=== PATIENT | male | born 1945 | race Caucasian/White ===

== ENCOUNTER 2016-11-15 20:24 | Inpatient (IN) ==
[2016-11-15] MEDS ORDERED: 0.9 % Sodium Chloride 1,000 ML IVC ONE ×2 (20:40→22:49)
--- NOTE | 2016-11-15 20:41 | Emergency Department Note ---
Disposition Clinical Impression: Gastroenteritis, Dehydration Acute kidney failure Qualifiers: Acute renal failure type: unspecified Qualified Code(s): N17.9 - Acute kidney failure, unspecified Disposition: Admitted As Inpatient Condition: Good Referrals: Unassigned,Provider [Non-Partnered Physician] - Forms: ED Satisfaction Letter Nausea/Vomiting/Diarrhea HPI - General Chief complaint: ED Nausea/Vomiting/Diarrhea Stated complaint: N/V/DIZZY Time Seen by Provider: 11/15/16 20:25 Source: patient, EMS Mode of arrival: ambulatory Limitations: no limitations Nursing Notes Reviewed: Yes Vital Signs Reviewed: Yes - History of Present Illness HPI Narrative: She is a 70-year-old male with a last 3-4 days had nausea vomiting and diarrhea. He states the nausea is improved he had 4-5 loose stools today denies any recent antibiotic use denies any travel or hospitalizations or longterm visits. Pt Subjective Complaint: nausea, vomiting Onset (ago): day(s) (4) Description of emesis: watery Description of Diarrhea: water Number of episodes: 4 Associated Abdominal Pain: No Improves with: nothing Worsens with: nonthing - Related Data Allergies Allergy/AdvReac Type Severity Reaction Status Date / Time clarithromycin Allergy Swelling Verified 10/24/15 15:08 of Lip/Tongue/Throat All systems ED: reviewed and negative except as stated. Constitutional: Reports: weakness. Denies: fever, chills Respiratory: Reports: cough (2 months) Past Medical History - Past Medical History Source: patient, old records reviewed, nursing notes reviewed Medical history: Reports: COPD, diabetes, hyperlipidemia, hypertension - Social History Smoking Status: Never smoker Alcohol use: Reports: none Drug use: Reports: none Physical Exam - General Limitations: no limitations General appearance: alert, in no apparent distress - Head Head exam: atraumatic, normocephalic, normal inspection - Eye Eye exam: Present: normal appearance, PERRL, EOMI - Expanded Eye Exam Pupils: Left: reactive - ENT ENT exam: normal exam, normal oropharynx, mucous membranes moist - Expanded ENT Exam External ear exam: Present: normal external inspection Mouth exam: Present: normal external inspection Teeth exam: Present: normal inspection Throat exam: Present: normal inspection - Neck Neck exam: Present: normal inspection, full ROM, trachea midline - Chest Chest inspection: Present: normal inspection, symmetric chest wall rise - Respiratory Respiratory exam: Present: other (Some diffuse coarse rhonchi with cough) - Cardiovascular Cardiovascular exam: Present: tachycardia - Abdominal Exam Abdominal exam: Present: soft, Non-Tender. Absent: tenderness, distention, guarding, rebound, rigidity - Extremities Exam Extremities exam: Present: normal inspection, full ROM. Absent: tenderness, pedal edema - Expanded Upper Extremity Exam Shoulder exam: Present: normal inspection, full ROM Arm exam: Present: normal inspection, full ROM Elbow exam: Present: normal inspection, full ROM Forearm/Wrist exam: Present: normal inspection, full ROM Hand exam: Present: normal inspection, full ROM Vascular exam: Normal: capillary refill, radial pulse - Expanded Lower Extremity Exam Hip/Pelvis exam: Present: normal inspection, full ROM Upper leg exam: Present: normal inspection, full ROM Knee exam: Present: normal inspection, full ROM Lower leg exam: Present: normal inspection, full ROM Ankle exam: Present: normal inspection, full ROM Foot/toe exam: Present: normal inspection, full ROM Neurovascular/Tendon exam: Absent: motor deficit, sensory deficit, tendon deficit - Back Exam Back exam: Present: normal inspection, full ROM. Absent: tenderness - Neurological Exam Neurological exam: Present: alert, oriented X3 - Expanded Neurological Exam Patient oriented to: Present: person, place, time Coma Scale Eye Opening: Spontaneous Coma Scale Motor Response: Obeys Commands Coma Scale Verbal Response: Oriented Coma Scale Total: 15 - Psychiatric Psychiatric exam: Present: normal affect, normal mood - Skin Skin exam: Present: warm, dry, intact, normal color Course Vital Signs Temperature 99.5 F 11/15/16 20:26 Pulse Rate 134 11/15/16 20:26 Respiratory Rate 24 11/15/16 20:26 Blood Pressure 99/65 11/15/16 20:26 O2 Sat by Pulse Oximetry 95 11/15/16 20:26 Temperature 99.5 F 11/15/16 20:26 Pulse Rate 134 11/15/16 20:26 Respiratory Rate 26 11/15/16 21:13 Blood Pressure 99/65 11/15/16 20:26 O2 Sat by Pulse Oximetry 94 L 11/15/16 21:13 Nausea/Vomiting/Diarrhea - Differential Diagnosis Likely: traveler's diarrhea, gastroenteritis, clostridium difficile infection, drug-induced nausea and vomitting, dehydration - Medical Records Medical records reviewed: Yes I reviewed the patient's medical records. - Lab Data Lab results reviewed: Yes I reviewed the patient's lab results. Result diagrams: 11/15/16 21:32 11/15/16 21:32 Lab Results 11/15/16 11/15/16 Range/Units 21:32 21:32 WBC 19.9 H (4.3-11.1) K/mcL RBC 5.52 H (4.19-5.50) M/mcL Hgb 12.6 L (12.9-16.9) g/dL Hct 40.9 (37.5-50.1) % MCV 74.1 L (83.0-100.0) fL MCH 22.8 L (28.0-33.3) pg MCHC 30.8 L (31.6-35.5) g/dL RDW 17.9 H (11.5-14.5) % Plt Count 356 (140-400) K/mcL MPV 10.3 (9.4-12.4) fL Immature Gran % 0.7 (0-4) % Seg Neutrophils % 85.0 % Lymphocytes % 4.6 % Monocytes % 9.5 % Eosinophils % 0.0 % Basophils % 0.2 % Neutrophils # 16.9 H (1.6-8.9) K/mcL Lymphocytes # 0.9 (0.6-4.6) K/mcL Monocytes # 1.9 H (0.0-1.3) K/mcL Eosinophils # 0.0 (0.0-0.6) K/mcL Basophils # 0.0 (0.0-0.2) K/mcL Sodium 131 L (136-145) mEq/L Potassium 3.9 (3.5-4.5) mEq/L Chloride 100 (98-109) mEq/L Carbon Dioxide 15 L (19-29) mEq/L BUN 67 H (8-26) mg/dL Creatinine 2.76 H (0.72-1.25) mg/dL Est GFR ( Amer) 28 L (> 60) Est GFR (Non-Af Amer) 23 L (> 60) BUN/Creatinine Ratio 24 (6-26) Glucose 298 H (70-99) mg/dL Calculated Osmolality 302 H (280-300) Calcium 8.2 L (8.6-10.8) mg/dL Total Bilirubin 0.4 (0.2-1.2) mg/dL AST 18 (5-34) Units/L ALT 19 (0-55) Units/L Alkaline Phosphatase 30 L (38-126) Units/L Serum Total Protein 7.3 (6.0-8.3) g/dL Albumin 3.3 L (3.5-5.0) g/dL Globulin 4.0 H (2.4-3.5) g/dL Albumin/Globulin Ratio 0.8 L (1.1-2.2) Lipase 12 (8-78) Units/L
[2016-11-15] MEDS ORDERED: Ipratropium/Albuterol Neb 3 ML IH ONE ×2 (20:47→20:49)
[2016-11-15 22:12] LABS: Basophils % 0.2 %; Hematocrit 40.9 % (37.5-50.1); Hemoglobin 12.6 g/dL (12.9-16.9); Immature Granulocytes % 0.7 % (0-4); Lymphocytes # 0.9 K/mcL (0.6-4.6); Lymphocytes % 4.6 %; Mean Corpuscular HGB Conc 30.8 g/dL (31.6-35.5); Mean Corpuscular Hemoglobin 22.8 pg (28.0-33.3); Mean Corpuscular Volume 74.1 fL (83.0-100.0); Mean Platelet Volume 10.3 fL (9.4-12.4); Monocytes # 1.9 K/mcL (0.0-1.3); Monocytes % 9.5 %; Neutrophils # 16.9 K/mcL (1.6-8.9); Platelet Count 356 K/mcL (140-400); Red Blood Count 5.52 M/mcL (4.19-5.50); Red Cell Distribution Width 17.9 % (11.5-14.5)
[2016-11-15 22:29] LABS: Albumin 3.3 g/dL (3.5-5.0); Albumin/Globulin Ratio 0.8 (1.1-2.2); Bilirubin,Total 0.4 mg/dL (0.2-1.2); Calcium 8.2 mg/dL (8.6-10.8); Potassium 3.9 mEq/L (3.5-4.5); Total Protein 7.3 g/dL (6.0-8.3)
--- NOTE | 2016-11-16 00:28 | Internal Med History&Physical ---
<Grazyna Hager - Last Filed: 11/16/16 21:34> Date of Encounter: 11/16/16 Time of Encounter: 01:03 Assessment and Plan (1) Gastroenteritis Current visit: Yes Status: Acute patient with diarhea, loss of appetite, and some nausea - no vomiting today ( although he only drank some chicken broth) clear liquid diet IVF (2) COPD exacerbation Current visit: Yes Status: Acute with hypoxemia patient does not use supplemental O2 at home at baseline is only dyspneic when hunting [place]and [place] VBG supplemental O2 via nasal cannula to maintain O2 sat at or above 94% duonebs q4 while awake (3) Acute kidney failure Current visit: Yes Status: Acute due to dehydration: N/V/D IVF AM labs to recheck consider renal US and nephrology consult if not improved with fluids (4) Dehydration Current visit: Yes Status: Acute 2 L fluid bolus followed by maintenance IVF (5) Diabetes Current visit: Yes Status: Acute SQ insulin with low dose sliding scale accuchecks q6 (6) HTN (hypertension) Current visit: Yes Status: Acute continue home medications BP was low in the ER (99/65) Internal Medicine - H&P: HPI Chief complaint: nausea, vomiting, diarrhea Admitted From: Emergency Dept Plans for Post Hospital Care: Home History of present illness: Mr. Peters is a 70 year old male with a PMH of diabetes, HTN, HLD, and COPD who presents to the ER with a 3 day history of nausea, vomiting, and diarrhea. Today his nausea is improved and he has not vomited. He has only drank a small amount of chicken broth and has no appetite. He has had 3 episodes of watery diarrhea today. He has also noticed increased dyspnea for the previous 3 days along with weakness and fatigue. His grandson was sick with a stomach bug last week. Past Med Surg Social Fam HX - Past Medical History Medical history: asthma, COPD, diabetes, GERD, hyperlipidemia, hypertension - Past Surgical History Surgical History: cataract, LE vascular intervention ( LLE phlebectomy, vein ablation), orthopedic, other, other - Social History Smoking Status: Never smoker Alcohol use: none Drug use: none - Family History Mother Adopted: [place]: [place] Family Member Ethnicity: Non- Living Status: Age at : 89 Cause of : [place] Internal Medicine - H&P: Meds Amitriptyline [Elavil] 25 mg PO HS 11/16/16 [History] Budesonide/Formoterol 80/4.5 [Symbicort 80/4.5] 1 puff IH BID 11/16/16 [History ] Clotrimazole 1% CRM [Lotrimin 1%] 1 appl TP BID 11/16/16 [History] Gabapentin [Neurontin] 800 mg PO TID 11/16/16 [History] Guaifenesin [Mucinex] 400 mg PO BID 11/16/16 [History] Insulin Glargine,Hum.rec.anlog [Lantus Solostar] 80 unit SQ BID 11/16/16 [ History] Lisinopril [Zestril] 10 mg PO DAILY 11/16/16 [History] Metformin [Glucophage] 1,000 mg PO BID 11/16/16 [History] Montelukast [Singulair] 10 mg PO HS 11/16/16 [History] Pantoprazole Sodium 40 mg PO DAILY 11/16/16 [History] Saxagliptin HCl [Onglyza] 5 mg PO DAILY 11/16/16 [History] Simvastatin [Zocor] 40 mg PO DAILY 11/16/16 [History] Allergies clarithromycin Allergy (Verified 10/24/15 15:08) Swelling of Lip/Tongue/Throat All Systems PM: A 10-system review of systems was performed and is negative for pertinent findings except as documented above in the HPI. - Constitutional Constitutional: fatigue, weakness, no chills, no fever(s), no night sweats - EENT Eyes: no blurry vision, no change in vision, no discharge, no pain, no photophobia Ears: no ear discharge, no ear pain, no tinnitus Nose, mouth and throat: no dysphagia, no nasal discharge, no neck pain, no sore throat - Cardiovascular Cardiovascular ROS IM: dyspnea, dyspnea on exertion, lightheadedness, no chest pain, no diaphoresis, no palpitations, no syncope - Respiratory Respiratory: cough, dyspnea, dyspnea on exertion, no wheezing, no excessive phlegm production - Gastrointestinal Gastrointestinal: diarrhea, nausea, vomiting, no abdominal pain, no hematemesis , no hematochezia, no melena - Musculoskeletal Musculoskeletal ROS IM: no myalgias, no numbness, no tingling - Integumentary Integumentary IM: no rash, no unusual bruising - Neurological Neurological ROS: no confusion, no convulsions, no focal weakness, no numbness, no tingling, no tremor(s) - Hematologic/Lymphatic Hematologic/Lymphatic: no easy bruising - Constitutional Vitals: Temp Pulse Resp BP Pulse Ox 99.5 F 134 20 110/55 94 L 11/15/16 20:26 11/15/16 20:26 11/15/16 23:57 11/15/16 23:57 11/15/16 21:13 General appearance: Present: cooperative, A&O X 3, no acute distress, obese, answers questions appropriately - Head Head exam: Present: atraumatic, normocephalic - Eye Eye exam: Present: PERRL, conjuntiva pink, sclera anicteric Pupils: Present: PERRL - Neck Neck exam general surgery: Present: supple, trachea midline. Absent: lymphadenopathy - Respiratory Respiratory exam: Present: tachypnea (coarse breath sounds throughout). Absent : accessory muscle use, rales, wheezes - Cardiovascular Cardiovascular exam: Present: +S1, +S2, tachycardia. Absent: diastolic murmur, gallop, rubs, systolic murmur - GI/Abdominal GI/Abdominal exam: Present: normal bowel sounds, soft, no peritoneal signs. Absent: distended, tenderness - Extremities Exam Extremities exam: Present: warm. Absent: calf tenderness, cyanotic, pedal edema - Neurological Exam Neurological exam: Present: CN II-XII intact, oriented X3, no focal deficits. Absent: pronater drift, facial droop, speech deficit - Skin Skin exam: Present: dry, intact Internal Med - H&P Results - Labs CBC & Chem 7: 11/16/16 03:05 11/16/16 03:05 <Gilberto Romano - Last Filed: 11/17/16 01:24> Date of Encounter: 11/17/16 Internal Medicine - H&P: HPI History of present illness: Mr. Peters is a 70 year old male All Systems PM: A 10-system review of systems was performed and is negative for pertinent findings except as documented above in the HPI. - Constitutional Vitals: Temp Pulse Resp BP Pulse Ox 97.9 F 108 14 94/52 93 L 11/16/16 23:33 11/16/16 23:33 11/16/16 23:33 11/16/16 23:33 11/16/16 23:33 Internal Med - H&P Results - Labs CBC & Chem 7: 11/16/16 03:05 11/16/16 03:05 Labs: Short CBC 11/16/16 Range/Units 03:05 WBC 18.6 H (4.3-11.1) K/mcL Hgb 11.9 L (12.9-16.9) g/dL Hct 38.9 (37.5-50.1) % Plt Count 354 (140-400) K/mcL Neutrophils # 15.9 H (1.6-8.9) K/mcL BMP 11/16/16 03:05 Sodium 130 L Potassium 3.5 Chloride 99 Carbon Dioxide 15 L BUN 75 H Creatinine 2.66 H Glucose 279 H Calcium 7.4 L - ABG Interpretation ABG results: 11/16/16 03:05 VBG pH 7.29 L VBG pCO2 37 L VBG pO2 82 H VBG HCO3 17.8 L - Attending Attestation I examined this patient and my medical decision-making was reviewed with the Resident Physician Dr Hager. I agree with the documented findings, disposition and treatment plan as described except to the extent set forth below. Patient admitted for severe dehydration causing acute kidney injury in the context of acute viral gastroenteritis. On exam he is in no acute distress. Heart is regular. Lungs are with bilateral expiratory wheezes. We will admit the patient to the hospital for IV fluid hydration. Monitor kidney function. Inhaled bronchodilators for COPD.
[2016-11-16] MEDS ORDERED: Naloxone 0.4 MG/ML INJ IVP PRN (00:55)
[2016-11-16] MEDS ORDERED: D5% in Water 1,000 ML IV PRN ×2 (01:01→16:15)
[2016-11-16] MEDS ORDERED: Dextrose Gel 15 GM PO PRN ×4 (01:01→16:15)
[2016-11-16] MEDS: Acetaminophen 325 MG TABLET PO PRN ×2 (01:36→08:05)
[2016-11-16] MEDS: Insulin DETEMIR 100 UNIT/ML X5UNITS SQ SCH ×2 (01:54→20:17)
[2016-11-16] MEDS: Insulin LISPRO 300 UNITS/3 ML VIAL SQ SCH ×9 (01:55→21:03)
[2016-11-16 02:12] LABS: Bilirubin,Urine Negative (Negative); Blood,Urine Negative (Negative); Clarity,Urine Cloudy (Clear); Color,Urine Yellow (Yellow); Glucose,Urine (UA) Normal (Normal); Ketones,Urine Negative (Negative); Leukocyte Esterase,Urine Negative (Negative); Nitrite,Urine Negative (Negative); Protein,Urine 100 mg/dL (Neg-Trace); Specific Gravity,Urine 1.021 (1.010-1.025); Urobilinogen,Urine Normal (Normal)
[2016-11-16 02:14] LABS: Bacteria,Urine None Seen per hpf (None-Few); Squamous Epithelial Cell,Urine Many per lpf (None-Few); WBC,Urine 0-3 per hpf (0-3)
[2016-11-16] MEDS ORDERED: 0.9 % Sodium Chloride 1,000 ML IVC SCH ×2 (03:00→16:17)
[2016-11-16 03:49] LABS: VBG HCO3 17.8 mEq/L (21-27); VBG PH 7.29 pH Units (7.32-7.42)
[2016-11-16 03:51] LABS: Basophils % 0.1 %; Hematocrit 38.9 % (37.5-50.1); Hemoglobin 11.9 g/dL (12.9-16.9); Immature Granulocytes % 0.4 % (0-4); Lymphocytes # 1.1 K/mcL (0.6-4.6); Lymphocytes % 6.1 %; Mean Corpuscular HGB Conc 30.6 g/dL (31.6-35.5); Mean Corpuscular Hemoglobin 22.1 pg (28.0-33.3); Mean Corpuscular Volume 72.3 fL (83.0-100.0); Monocytes # 1.5 K/mcL (0.0-1.3); Monocytes % 7.8 %; Neutrophils # 15.9 K/mcL (1.6-8.9); Platelet Count 354 K/mcL (140-400); Red Blood Count 5.38 M/mcL (4.19-5.50); Red Cell Distribution Width 16.8 % (11.5-14.5); Segmented Neutrophils % 85.6 %
[2016-11-16] MEDS: Ipratropium/Albuterol Neb 3 ML IH SCH ×5 (04:05→20:06)
[2016-11-16 04:06] LABS: Calcium 7.4 mg/dL (8.6-10.8); Potassium 3.5 mEq/L (3.5-4.5)
[2016-11-16] MEDS ORDERED: MethylPREDNISolone 40 MG/ML VIAL IVP SCH (08:00)
[2016-11-16] MEDS: 0.9 % Sodium Chloride 1,000 ML IVC SCH ×2 (08:04→14:52)
[2016-11-16] MEDS: Gabapentin 400 MG CAPSULE PO SCH ×3 (08:05→20:17)
[2016-11-16] MEDS: Budesonide/Formoterol 80/4.5 MDI IH SCH ×2 (08:27→20:06)
[2016-11-16] MEDS: *HR* HYDROcodone/Acet 7.5/325 mg TABLET PO PRN ×2 (09:49→17:49)
[2016-11-16] MEDS: Fluticasone Propionate Nasal 50 MCG/SPRAY BOTTLE NS SCH (09:51)
[2016-11-16 12:14] LABS: Adenovirus F 40/41 PCR Not detected (Not detect); Astrovirus PCR Not detected (Not detect); C.difficile Toxin A/B by PCR Not detected (Not detect); Campylobacter by PCR Not detected (Not detect); Cryptosporidium by PCR Not detected (Not detect); Cyclospora cayetanensis PCR Not detected (Not detect); E. coli O157 by PCR Not detected (Not detect); Entamoeba histolytica PCR Not detected (Not detect); Enteroaggregative E.coli(EAEC) Not detected (Not detect); Enteropathogenic E.coli(EPEC) Not detected (Not detect); Enterotoxigenic E.coli (ETEC) Not detected (Not detect); Giardia lamblia PCR Not detected (Not detect); Norovirus GI/GII PCR Not detected (Not detect); Plesiomonas shigelloides PCR Not detected (Not detect); Rotavirus A PCR ***DETECTED*** (Not detect); Salmonella PCR Not detected (Not detect); Sapovirus PCR Not detected (Not detect); Shig/EnteroinvasiveE coli EIEC Not detected (Not detect); Shigalike tox-prod E coli STEC Not detected (Not detect); Vibrio PCR Not detected (Not detect); Vibrio cholerae PCR Not detected (Not detect); Yersinia enterocolitica PCR Not detected (Not detect)
[2016-11-16] MEDS ORDERED: *HR* Dextrose 50 % in Water (Syg) 50 ML SYRINGE IVP PRN (16:15)
--- NOTE | 2016-11-16 16:20 | Event Note ---
Date of Encounter: 11/16/16 Time of Encounter: 15:50 70-year-old male with history of hypertension, diabetes, COPD, admitted with persistent nausea, vomiting and diarrhea for the last 2-3 days. Patient was noted to be dehydrated at admission. Patient seen and examined. Reports crampy abdominal pain in central abdomen. Improved nausea and emesis but persistent dark colored loose, watery, nonbloody diarrhea. Awake, alert and oriented 3. Chest-S1, S2 heard. Lungs-bilateral coarse breath sounds, intermittent basal wheezing. Abdomen-obese, soft, tenderness in left lower abdomen. Reviewed labs-notable for persistent leukocytosis (WBC 18.6), serum creatinine slightly improving (creatinine 2.6), metabolic acidosis (serum bicarbonate 15). Stool studies are positive for lactoferrin, rotavirus PCR. Acute viral gastroenteritis- Continue aggressive IV hydration and supportive care for gastroenteritis. Hand hygiene for rotavirus infection. When necessary antiemetics. Monitor electrolytes closely and replace as needed. Acute kidney injury on chronic kidney disease- review of previous serum creatinine shows possible chronic kidney disease. Serum creatinine about 2 years ago was noted to be around 1.5. Continue IV hydration and monitor creatinine closely. Avoid nephrotoxic agents. Metabolic acidosis due to diarrhea- treat underlying cause. When necessary loperamide for diarrhea. No indication for bicarbonate treatment at this point. Mild acute exacerbation of COPD- Taper down IV steroids as tolerated. Continue bronchodilators and supplemental oxygen as needed.
[2016-11-16] MEDS: MethylPREDNISolone 40 MG/ML VIAL IVP SCH (17:49)
[2016-11-17] MEDS: 0.9 % Sodium Chloride 1,000 ML IVC SCH ×2 (00:02→10:31)
[2016-11-17] MEDS: Ipratropium/Albuterol Neb 3 ML IH SCH ×6 (00:13→20:14)
[2016-11-17] MEDS: MethylPREDNISolone 40 MG/ML VIAL IVP SCH (04:41)
[2016-11-17] MEDS ORDERED: GI Cocktail 40 ML EACH PO ONE (04:48)
[2016-11-17] MEDS: Budesonide/Formoterol 80/4.5 MDI IH SCH ×2 (08:08→20:14)
[2016-11-17 08:16] LABS: Basophils % 0.1 %; Hematocrit 37.8 % (37.5-50.1); Hemoglobin 11.7 g/dL (12.9-16.9); Immature Granulocytes % 0.3 % (0-4); Lymphocytes # 0.9 K/mcL (0.6-4.6); Lymphocytes % 6.5 %; Mean Corpuscular Hemoglobin 22.5 pg (28.0-33.3); Mean Corpuscular Volume 72.8 fL (83.0-100.0); Mean Platelet Volume 9.9 fL (9.4-12.4); Monocytes # 0.7 K/mcL (0.0-1.3); Neutrophils # 12.6 K/mcL (1.6-8.9); Platelet Count 308 K/mcL (140-400); Red Blood Count 5.19 M/mcL (4.19-5.50); Segmented Neutrophils % 88.1 %
[2016-11-17 08:28] LABS: Magnesium 1.3 mg/dL (1.6-2.6); Potassium 3.9 mEq/L (3.5-4.5)
[2016-11-17] MEDS: Gabapentin 400 MG CAPSULE PO SCH ×3 (09:09→20:43)
[2016-11-17] MEDS: Fluticasone Propionate Nasal 50 MCG/SPRAY BOTTLE NS SCH (09:09)
[2016-11-17] MEDS: *HR* HYDROcodone/Acet 7.5/325 mg TABLET PO PRN ×3 (09:09→16:32)
[2016-11-17] MEDS: Insulin LISPRO 300 UNITS/3 ML VIAL SQ SCH ×7 (09:10→20:42)
[2016-11-17] MEDS ORDERED: Magnesium Sulfate 2 GM in D5% in Water 100 ML IVPB ONE (12:10)
--- NOTE | 2016-11-17 13:26 | Internal Med Progress Note ---
Date of Encounter: 11/17/16 Time of Encounter: 12:00 - Subjective Interval history: Reports feeling much better than yesterday. Improving diarrhea and nausea but still feels very weak and has some abdominal cramping. Able to tolerate oral diet, solids. A&P here due to technical issues- Acute viral gastroenteritis- Stool positive for Rotavirus PCR. Improving. Noted to have tachycardia, likely due to volume depletion. Continue aggressive IV hydration and supportive care for gastroenteritis. Hand hygiene for rotavirus infection. When necessary antiemetics. Monitor electrolytes closely and replace as needed. PRN Loperamide for diarrhea. Hypomagnesemia- likely due to GI losses. Replace with IV MgSO4 and f/up. Acute kidney injury on chronic kidney disease- improving. Continue IV hydration and monitor creatinine closely. Avoid nephrotoxic agents. Hold ACEI/diuretics now. Metabolic acidosis due to diarrhea- improving with improving diarrhea. continue to treat underlying cause. DM- Type 2, with hyperglycemia, on insulin- noted to have slightly improving blood sugars; he also has steroid-induced hyperglycemia; noticed that he has not been started on home dose of basal insulin; will change steroids to oral form; will increase basal insulin and continue Accucheck with blood glucose monitoring; diabetic diet. Mild acute exacerbation of COPD- Change to oral steroids. Continue bronchodilators and supplemental oxygen as needed. - Constitutional Vitals: Temp Pulse Resp BP Pulse Ox 98.0 F 110 18 116/70 96 11/17/16 10:55 11/17/16 10:55 11/17/16 11:43 11/17/16 10:55 11/17/16 11:43 General appearance: Present: A&O X 3, obese, answers questions appropriately - Respiratory Respiratory exam: Present: CTAB. Absent: accessory muscle use, rales, rhonchi, wheezes - Cardiovascular Cardiovascular exam: Present: RRR, +S1, +S2, tachycardia. Absent: diastolic murmur, gallop, rubs, systolic murmur - GI/Abdominal GI/Abdominal exam: Present: normal bowel sounds, soft (significant central obesity, mild central abdominal tenderness), no peritoneal signs. Absent: distended, tenderness - Extremities Exam Extremities exam: Present: warm, radial pulses palpable and symetrical. Absent : calf tenderness, cyanotic, pedal edema Internal Medicine: Result - Labs CBC & Chem 7: 11/17/16 07:44 11/17/16 07:44 Labs: Short CBC 11/17/16 Range/Units 07:44 WBC 14.3 H (4.3-11.1) K/mcL Hgb 11.7 L (12.9-16.9) g/dL Hct 37.8 (37.5-50.1) % Plt Count 308 (140-400) K/mcL Neutrophils # 12.6 H (1.6-8.9) K/mcL BMP 11/17/16 07:44 Sodium 134 L Potassium 3.9 Chloride 105 Carbon Dioxide 18 L BUN 64 H Creatinine 1.53 H Glucose 255 H Calcium 7.0 L Consult Discharge Plan - Plan [facility]errals: [facility] [Primary Care Provider[facility] -
[2016-11-17] MEDS ORDERED: Mag Hydrox/Al Hydrox/Simeth 30 ML UDC PO PRN (16:33)
[2016-11-17] MEDS: Insulin DETEMIR 100 UNIT/ML X5UNITS SQ SCH (20:42)
[2016-11-18] MEDS: Ipratropium/Albuterol Neb 3 ML IH SCH ×6 (00:04→20:06)
[2016-11-18] MEDS: 0.9 % Sodium Chloride 1,000 ML IVC SCH (01:29)
[2016-11-18 04:57] LABS: Basophils % 0.1 %; Hematocrit 38.7 % (37.5-50.1); Hemoglobin 12.3 g/dL (12.9-16.9); Immature Granulocytes % 0.4 % (0-4); Lymphocytes # 1.1 K/mcL (0.6-4.6); Lymphocytes % 8.5 %; Mean Corpuscular HGB Conc 31.8 g/dL (31.6-35.5); Mean Corpuscular Hemoglobin 23.2 pg (28.0-33.3); Mean Corpuscular Volume 72.9 fL (83.0-100.0); Mean Platelet Volume 9.9 fL (9.4-12.4); Monocytes # 1.5 K/mcL (0.0-1.3); Platelet Count 358 K/mcL (140-400); Red Blood Count 5.31 M/mcL (4.19-5.50); Red Cell Distribution Width 17.7 % (11.5-14.5)
[2016-11-18 05:02] LABS: BUN/Creatinine Ratio 29 (6-26); Blood Urea Nitrogen 37 mg/dL (8-26); Calcium 7.9 mg/dL (8.6-10.8); Carbon Dioxide 22 mEq/L (19-29); Chloride 104 mEq/L (98-109); Glucose 116 mg/dL (70-99); Magnesium 2.1 mg/dL (1.6-2.6); Osmolality,Calculated 290 (280-300); Potassium 3.5 mEq/L (3.5-4.5); Sodium 135 mEq/L (136-145); eGFR For African Americans > 60 (> 60); eGFR For Non-African Americans 55 (> 60)
[2016-11-18 05:39] LABS: Anisocytosis 1+ (Not Present); Platelet Estimate Normal (Normal)
[2016-11-18] MEDS: Budesonide/Formoterol 80/4.5 MDI IH SCH ×2 (07:39→20:06)
[2016-11-18] MEDS: Insulin LISPRO 300 UNITS/3 ML VIAL SQ SCH ×7 (08:33→21:15)
[2016-11-18] MEDS: Gabapentin 400 MG CAPSULE PO SCH ×3 (08:40→21:16)
[2016-11-18] MEDS: Insulin DETEMIR 100 UNIT/ML X5UNITS SQ SCH ×2 (08:40→21:16)
[2016-11-18] MEDS: Fluticasone Propionate Nasal 50 MCG/SPRAY BOTTLE NS SCH (08:41)
[2016-11-18] MEDS ORDERED: predniSONE 20 MG TABLET PO SCH (09:00)
--- NOTE | 2016-11-18 17:09 | General Surgery Consult Note ---
<Christian Perea - Last Filed: 11/19/16 09:04> Date of Encounter: 11/19/16 Time of Encounter: 16:50 Assessment and Plan (1) Partial bowel obstruction Status: Acute NPO for bowel rest. Recommend no meds by mouth at this time. Continue IV fluids. If nausea and vomiting returns or worsening abdominal pain consider NG tube. (2) Diabetes Status: Acute Continue management per the medicine team with insulin. Qualifiers: Diabetes mellitus type: type 2 Diabetes mellitus complication status: with neurologic complications Diabetes mellitus complication detail: with unspecified neuropathy Diabetes mellitus terminal worker insulin use: unspecified retirement insulin use status Qualified Code(s): E11.40 - Type 2 diabetes mellitus with diabetic neuropathy, unspecified (3) COPD exacerbation Status: Acute Continue bronchodilators and supplemental oxygen as needed. Management per the medicine team. (4) Acute kidney failure Status: Acute Improving, continue IV fluids and continue to monitor. Qualifiers: Acute renal failure type: unspecified Qualified Code(s): N17.9 - Acute kidney failure, unspecified History of Present Illness Consult date: 11/18/16 Reason for consult: other (abdominal distention, possible ileus) Requesting physician: Isabel Law History of present illness: This is a 70 year old male with PMH significant for diabetes, COPD, hypertension , hyperlipidemia, and GERD who presented to the ED 11/15/16 for nausea, vomiting , and diarrhea x3 days. He denied ever having any blood in his diarrhea or vomit. He states that his nausea and vomiting has resolved for the past 3 days and he has not had any vomiting since either. He now reports that he is having abdominal distention with bloating, and has not had a bowel movement for the past 1.5 days. He denies having any abdominal pain and reports that he continues to pass gas. He denies any previous abdominal surgeries. He was on loperamide for his diarrhea, which has since been discontinued. He had a KUB today, which demonstrated multiple dilated loops of small bowel either due to SBO or ileus. The patient had postive stool rotavirus detected. Past Med Surg Social Fam HX - Past Medical History Medical history: asthma, COPD, diabetes, GERD, hyperlipidemia, hypertension Psychiatric history: no psych history - Past Surgical History Surgical History: cataract, LE vascular intervention ( LLE phlebectomy, vein ablation), orthopedic, other, other - Social History Smoking Status: Never smoker Smokeless Tobacco Status: No Alcohol use: none Drug use: none - Family History Mother Adopted: [place]: [place] Family Member Ethnicity: Non- Living Status: Age at : 89 Cause of : PR Medications and Allergies Amitriptyline [Elavil] 25 mg PO HS 11/16/16 [History] Budesonide/Formoterol 80/4.5 [Symbicort 80/4.5] 1 puff IH BID 11/16/16 [History ] Clotrimazole 1% CRM [Lotrimin 1%] 1 appl TP BID 11/16/16 [History] Gabapentin [Neurontin] 800 mg PO TID 11/16/16 [History] Guaifenesin [Mucinex] 400 mg PO BID 11/16/16 [History] Lisinopril [Zestril] 10 mg PO DAILY 11/16/16 [History] Metformin [Glucophage] 1,000 mg PO BID 11/16/16 [History] Montelukast [Singulair] 10 mg PO HS 11/16/16 [History] Pantoprazole Sodium 40 mg PO DAILY 11/16/16 [History] Saxagliptin HCl [Onglyza] 5 mg PO DAILY 11/16/16 [History] Simvastatin [Zocor] 40 mg PO DAILY 11/16/16 [History] Insulin Glargine,Hum.rec.anlog [Lantus Solostar] 40 unit SQ BID #0 11/20/16 [Rx ] PredniSONE 20 mg PO DAILY #10 tablet 11/20/16 [Rx] Allergies clarithromycin Allergy (Verified 10/24/15 15:08) Swelling of Lip/Tongue/Throat Review of Systems All systems PM: A 10-system review of systems was performed and is negative for pertinent findings except as documented above in the HPI. - Constitutional chills, no fever(s), no headache(s), no night sweats - EENT Nose, mouth and throat: other (altered taste), no dysphagia, no headache(s) - Cardiovascular dyspnea, no chest pain, no diaphoresis, no edema - Respiratory cough, dyspnea, no hemoptysis - Gastrointestinal bloating, no abdominal pain, no diarrhea, no nausea, no vomiting - Genitourinary no dysuria, no hematuria - Musculoskeletal no arthralgias, no numbness - Neurological paresthesias (toes), no loss of vision, no numbness General Surgery Exam Initial Vital Signs Temp Pulse Resp BP Pulse Ox 99.5 F 134 24 99/65 95 11/15/16 20:26 11/15/16 20:26 11/15/16 20:26 11/15/16 20:26 11/15/16 20:26 - General physical appearance well developed, well nourished, no distress, obese - Eyes normal ocular movement - ENT normal mucosa - Neck trachea midline - Respiratory normal respiratory effort rales: bilateral (right worse than left) - Cardiovascular Cardiovascular exam: Present: tachycardia - Abdomen Abdomen general surgery: Present: bowel sounds present, soft, non tender, distended. Absent: guarding, rebound, rigid - Integumentary Integumentary general surgery: Present: warm and dry - Neurologic Present: CN 2-12 grossly intact - Musculoskeletal Present: normal posture - Psychiatric Psychiatric general surgery: Present: A&Ox3, appropriate, oriented to person, oriented to place, oriented to time, speech is normal, memory intact Exam Initial Vital Signs Temp Pulse Resp BP Pulse Ox 99.5 F 134 24 99/65 95 11/15/16 20:26 11/15/16 20:26 11/15/16 20:26 11/15/16 20:26 11/15/16 20:26 Results - Labs 11/19/16 04:16 11/19/16 04:16 Abnormal lab results WBC 12.6 K/mcL (4.3-11.1) H 11/18/16 04:30 Hgb 12.3 g/dL (12.9-16.9) L 11/18/16 04:30 MCV 72.9 fL (83.0-100.0) L 11/18/16 04:30 MCH 23.2 pg (28.0-33.3) L 11/18/16 04:30 RDW 17.7 % (11.5-14.5) H 11/18/16 04:30 Neutrophils # 10.0 K/mcL (1.6-8.9) H 11/18/16 04:30 Monocytes # 1.5 K/mcL (0.0-1.3) H 11/18/16 04:30 Anisocytosis 1+ (Not Present) A 11/18/16 04:30 VBG pH 7.29 pH Units (7.32-7.42) L 11/16/16 03:05 VBG pCO2 37 mmHg (41-51) L 11/16/16 03:05 VBG pO2 82 mmHg (25-40) H 11/16/16 03:05 VBG HCO3 17.8 mEq/L (21-27) L 11/16/16 03:05 Sodium 135 mEq/L (136-145) L 11/18/16 04:30 BUN 37 mg/dL (8-26) H D 11/18/16 04:30 Creatinine 1.29 mg/dL (0.72-1.25) H 11/18/16 04:30 Est GFR (Non-Af Amer) 55 (> 60) L 11/18/16 04:30 BUN/Creatinine Ratio 29 (6-26) H 11/18/16 04:30 Glucose 116 mg/dL (70-99) H 11/18/16 04:30 Calcium 7.9 mg/dL (8.6-10.8) L 11/18/16 04:30 Alkaline Phosphatase 30 Units/L (38-126) L 11/15/16 21:32 Albumin 3.3 g/dL (3.5-5.0) L 11/15/16 21:32 Globulin 4.0 g/dL (2.4-3.5) H 11/15/16 21:32 Albumin/Globulin Ratio 0.8 (1.1-2.2) L 11/15/16 21:32 Urine Clarity Cloudy (Clear) A 11/16/16 02:00 Urine Protein 100 mg/dL (Neg-Trace) H 11/16/16 02:00 Urine Microscopic RBC 5-15 per hpf (0-3) H 11/16/16 02:00 Ur Squamous Epith Cells Many per lpf (None-Few) H 11/16/16 02:00 Stool Rotavirus A PCR DETECTED (Not detect) A 11/16/16 10:37 Diabetes panel 11/18/16 Range/Units 04:30 Sodium 135 L (136-145) mEq/L Potassium 3.5 (3.5-4.5) mEq/L Chloride 104 (98-109) mEq/L Carbon Dioxide 22 (19-29) mEq/L BUN 37 H D (8-26) mg/dL Creatinine 1.29 H (0.72-1.25) mg/dL Glucose 116 H (70-99) mg/dL Calcium 7.9 L (8.6-10.8) mg/dL Calcium panel 11/18/16 Range/Units 04:30 Calcium 7.9 L (8.6-10.8) mg/dL Pituitary panel 11/18/16 Range/Units 04:30 Sodium 135 L (136-145) mEq/L Potassium 3.5 (3.5-4.5) mEq/L Chloride 104 (98-109) mEq/L Carbon Dioxide 22 (19-29) mEq/L BUN 37 H D (8-26) mg/dL Creatinine 1.29 H (0.72-1.25) mg/dL Glucose 116 H (70-99) mg/dL Calcium 7.9 L (8.6-10.8) mg/dL Adrenal panel 11/18/16 Range/Units 04:30 Sodium 135 L (136-145) mEq/L Potassium 3.5 (3.5-4.5) mEq/L Chloride 104 (98-109) mEq/L Carbon Dioxide 22 (19-29) mEq/L BUN 37 H D (8-26) mg/dL Creatinine 1.29 H (0.72-1.25) mg/dL Glucose 116 H (70-99) mg/dL Calcium 7.9 L (8.6-10.8) mg/dL All other labs normal. Consult Discharge Plan - Plan Instructions: Dehydration (DC), Acute Kidney Injury (DC), Hypokalemia (DC), Gastroenteritis (DC), Chronic Obstructive Pulmonary Disease (DC) [facility]Primary Care Provider[facility] - 11/25/16 3:00 pm Prescriptions: PredniSONE 20 mg PO DAILY #10 tablet - Attending Attestation I examined this patient and my medical decision-making was reviewed with the E COMMERCE DEVELOPER/PA/Advanced Practice Nurse/Resident Physician. I agree with the documented findings, disposition and treatment plan as described except to the extent set forth below. <Anel Lan - Last Filed: 11/21/16 13:11> Date of Encounter: 11/18/16 Assessment and Plan (1) Partial bowel obstruction Status: Resolved patients films and symptoms consistent with partial small bowel obstruction no significant nausea or emesis at this time, will manage conservatively npo, ivf hydration, serial abdominal exams History of Present Illness History of present illness: Patient was admitted to the hospital several days ago with N/V/D. He was found to be rotavirus positive. He was treated with loperamide, ivf hydration. He was tolerating a diet and was ready to be discharged when he experienced abdominal distention and nausea. He denies recent emesis. He is still passing a little flatus. No significant abdominal pain. Past Med Surg Social Fam HX - Past Medical History Source: patient Review of Systems All systems PM: reviewed and no additional remarkable complaints except as stated All systems PM: A 10-system review of systems was performed and is negative for pertinent findings except as documented above in the HPI. General Surgery Exam Initial Vital Signs Temp Pulse Resp BP Pulse Ox 99.5 F 134 24 99/65 95 11/15/16 20:26 11/15/16 20:26 11/15/16 20:26 11/15/16 20:26 11/15/16 20:26 - General physical appearance well nourished, no distress, obese - Eyes PERRL, normal ocular movement - ENT normal mucosa, atraumatic, normocephalic - Respiratory normal respiratory effort - Abdomen Abdomen general surgery: Present: bowel sounds present, soft, non tender, distended. Absent: guarding - Neurologic Present: CN 2-12 grossly intact - Musculoskeletal Present: normal posture - Psychiatric Psychiatric general surgery: Present: A&Ox3, speech is normal Exam Initial Vital Signs Temp Pulse Resp BP Pulse Ox 99.5 F 134 24 99/65 95 11/15/16 20:26 11/15/16 20:26 11/15/16 20:26 11/15/16 20:26 11/15/16 20:26 Results - Labs 11/19/16 04:16 11/20/16 03:52 Abnormal lab results WBC 12.6 K/mcL (4.3-11.1) H 11/18/16 04:30 Hgb 12.3 g/dL (12.9-16.9) L 11/18/16 04:30 MCV 72.9 fL (83.0-100.0) L 11/18/16 04:30 MCH 23.2 pg (28.0-33.3) L 11/18/16 04:30 RDW 17.7 % (11.5-14.5) H 11/18/16 04:30 Neutrophils # 10.0 K/mcL (1.6-8.9) H 11/18/16 04:30 Monocytes # 1.5 K/mcL (0.0-1.3) H 11/18/16 04:30 Anisocytosis 1+ (Not Present) A 11/18/16 04:30 VBG pH 7.29 pH Units (7.32-7.42) L 11/16/16 03:05 VBG pCO2 37 mmHg (41-51) L 11/16/16 03:05 VBG pO2 82 mmHg (25-40) H 11/16/16 03:05 VBG HCO3 17.8 mEq/L (21-27) L 11/16/16 03:05 Sodium 135 mEq/L (136-145) L 11/18/16 04:30 BUN 37 mg/dL (8-26) H D 11/18/16 04:30 Creatinine 1.29 mg/dL (0.72-1.25) H 11/18/16 04:30 Est GFR (Non-Af Amer) 55 (> 60) L 11/18/16 04:30 BUN/Creatinine Ratio 29 (6-26) H 11/18/16 04:30 Glucose 116 mg/dL (70-99) H 11/18/16 04:30 Calcium 7.9 mg/dL (8.6-10.8) L 11/18/16 04:30 Alkaline Phosphatase 30 Units/L (38-126) L 11/15/16 21:32 Albumin 3.3 g/dL (3.5-5.0) L 11/15/16 21:32 Globulin 4.0 g/dL (2.4-3.5) H 11/15/16 21:32 Albumin/Globulin Ratio 0.8 (1.1-2.2) L 11/15/16 21:32 Urine Clarity Cloudy (Clear) A 11/16/16 02:00 Urine Protein 100 mg/dL (Neg-Trace) H 11/16/16 02:00 Urine Microscopic RBC 5-15 per hpf (0-3) H 11/16/16 02:00 Ur Squamous Epith Cells Many per lpf (None-Few) H 11/16/16 02:00 Stool Rotavirus A PCR DETECTED (Not detect) A 11/16/16 10:37 Diabetes panel 11/18/16 Range/Units 04:30 Sodium 135 L (136-145) mEq/L Potassium 3.5 (3.5-4.5) mEq/L Chloride 104 (98-109) mEq/L Carbon Dioxide 22 (19-29) mEq/L BUN 37 H D (8-26) mg/dL Creatinine 1.29 H (0.72-1.25) mg/dL Glucose 116 H (70-99) mg/dL Calcium 7.9 L (8.6-10.8) mg/dL Calcium panel 11/18/16 Range/Units 04:30 Calcium 7.9 L (8.6-10.8) mg/dL Pituitary panel 11/18/16 Range/Units 04:30 Sodium 135 L (136-145) mEq/L Potassium 3.5 (3.5-4.5) mEq/L Chloride 104 (98-109) mEq/L Carbon Dioxide 22 (19-29) mEq/L BUN 37 H D (8-26) mg/dL Creatinine 1.29 H (0.72-1.25) mg/dL Glucose 116 H (70-99) mg/dL Calcium 7.9 L (8.6-10.8) mg/dL Adrenal panel 11/18/16 Range/Units 04:30 Sodium 135 L (136-145) mEq/L Potassium 3.5 (3.5-4.5) mEq/L Chloride 104 (98-109) mEq/L Carbon Dioxide 22 (19-29) mEq/L BUN 37 H D (8-26) mg/dL Creatinine 1.29 H (0.72-1.25) mg/dL Glucose 116 H (70-99) mg/dL Calcium 7.9 L (8.6-10.8) mg/dL All other labs normal. - Imaging Abdominal x-ray: report reviewed, image reviewed - Attending Attestation I examined this patient and my medical decision-making was reviewed with the E COMMERCE DEVELOPER/PA/Advanced Practice Nurse/Resident Physician. I agree with the documented findings, disposition and treatment plan as described except to the extent set forth below.
--- NOTE | 2016-11-18 17:21 | Internal Med Progress Note ---
Date of Encounter: 11/18/16 Time of Encounter: 15:00 - Subjective Interval history: Continues to have abdominal distention. No fever, chills or abdominal pain. Has had no bowel movement since yesterday. No nausea or vomiting. Noted to be sleeping most of the time and drowsy. A&P here due to technical issues- Abdominal distention-patient is noted to have persistent severely distended abdomen despite symptomatic treatment with Maalox, calcium carbonate. Abdominal x-ray shows dilated loops of small bowel, suggestive of partial small bowel obstruction. No emesis at this time, we will hold off on nasogastric tube insertion. Keep nothing by mouth. Will consult surgery for further recommendations. Monitor and replete electrolytes as needed. Tachycardia-persistent tachycardia. EKG reviewed, shows sinus tachycardia, likely related to volume depletion along with small bowel obstruction. Continue to treat underlying cause. Acute viral gastroenteritis- Stool positive for Rotavirus PCR. Diarrhea resolved and patient has had no bowel movements since yesterday. Hold loperamide for now. Continue aggressive IV hydration and supportive care for gastroenteritis. Hand hygiene for rotavirus infection. When necessary antiemetics. Hypomagnesemia- likely due to GI losses; Improved. Acute kidney injury on chronic kidney disease- improving. Continue IV hydration and monitor creatinine closely. Avoid nephrotoxic agents. Hold ACEI/diuretics now. Metabolic acidosis due to diarrhea- improving with improving diarrhea. continue to treat underlying cause. DM- Type 2, with hyperglycemia, on insulin- blood sugars noted to be well controlled. Continue sliding scale insulin as needed; NPO currently; Mild acute exacerbation of Ccontinue to taper down oral steroids as tolerated. Continue bronchodilators and supplemental oxygen as needed. - Constitutional Vitals: Temp Pulse Resp BP Pulse Ox 98.3 F 107 15 97/54 93 L 11/18/16 15:18 11/18/16 15:18 11/18/16 15:18 11/18/16 15:18 11/18/16 15:18 General appearance: Present: A&O X 3, obese, answers questions appropriately - Respiratory Respiratory exam: Present: CTAB. Absent: accessory muscle use, rales, rhonchi, wheezes - Cardiovascular Cardiovascular exam: Present: RRR, +S1, +S2, tachycardia. Absent: diastolic murmur, gallop, rubs, systolic murmur - GI/Abdominal GI/Abdominal exam: Present: distended (tympanic note), firm, normal bowel sounds , no peritoneal signs. Absent: tenderness - Extremities Exam Extremities exam: Present: warm, radial pulses palpable and symetrical. Absent : calf tenderness, cyanotic, pedal edema Internal Medicine: Result - Labs CBC & Chem 7: 11/18/16 04:30 11/18/16 04:30 Labs: Short CBC 11/18/16 Range/Units 04:30 WBC 12.6 H (4.3-11.1) K/mcL Hgb 12.3 L (12.9-16.9) g/dL Hct 38.7 (37.5-50.1) % Plt Count 358 (140-400) K/mcL Neutrophils # 10.0 H (1.6-8.9) K/mcL BMP 11/18/16 04:30 Sodium 135 L Potassium 3.5 Chloride 104 Carbon Dioxide 22 BUN 37 H D Creatinine 1.29 H Glucose 116 H Calcium 7.9 L - Impressions Impressions KUB X-Ray 11/18/16 13:30 IMPRESSION: 1. Multiple dilated loops of small bowel either due to partial small bowel obstruction or ileus. D/ / Mart Mota MD / Mart Mota MD Interpreting Provider: Mart Mota MD Consult Discharge Plan - Plan [facility]errals: [facility] [Primary Care Provider[facility] -
[2016-11-19] MEDS: Ipratropium/Albuterol Neb 3 ML IH SCH ×5 (00:39→15:35)
[2016-11-19] MEDS: 0.9 % Sodium Chloride 1,000 ML IVC SCH (01:26)
[2016-11-19 05:07] LABS: Hematocrit 33.7 % (37.5-50.1); Mean Corpuscular HGB Conc 30.3 g/dL (31.6-35.5); Mean Corpuscular Hemoglobin 21.8 pg (28.0-33.3); Mean Platelet Volume 9.9 fL (9.4-12.4); Platelet Count 331 K/mcL (140-400); Red Blood Count 4.68 M/mcL (4.19-5.50); Red Cell Distribution Width 17.2 % (11.5-14.5)
[2016-11-19 05:31] LABS: Hemoglobin 10.2 g/dL (12.9-16.9)
[2016-11-19 05:35] LABS: Lymphocytes # 1.7 K/mcL (0.6-4.6); Monocytes # 1.5 K/mcL (0.0-1.3); Neutrophils # 6.2 K/mcL (1.6-8.9)
[2016-11-19 05:36] LABS: BUN/Creatinine Ratio 26 (6-26); Calcium 7.3 mg/dL (8.6-10.8); Carbon Dioxide 22 mEq/L (19-29); Chloride 109 mEq/L (98-109); Osmolality,Calculated 286 (280-300); Platelet Estimate Normal (Normal); Potassium 3.2 mEq/L (3.5-4.5); Sodium 138 mEq/L (136-145); eGFR For African Americans > 60 (> 60); eGFR For Non-African Americans > 60 (> 60)
[2016-11-19 05:38] LABS: Blood Urea Nitrogen 22 mg/dL (8-26)
[2016-11-19 05:39] LABS: Glucose 39 mg/dL (70-99)
[2016-11-19] MEDS ORDERED: *HR* Dextrose 50 % in Water (Syg) 50 ML SYRINGE ONE ×2 (05:47→07:01)
[2016-11-19] MEDS: *HR* Dextrose 50 % in Water (Syg) 50 ML SYRINGE IVP PRN ×3 (05:54→08:39)
[2016-11-19] MEDS: Insulin LISPRO 300 UNITS/3 ML VIAL SQ SCH ×7 (07:44→20:57)
[2016-11-19] MEDS: Gabapentin 400 MG CAPSULE PO SCH ×3 (07:45→22:40)
[2016-11-19] MEDS: predniSONE 20 MG TABLET PO SCH (07:45)
[2016-11-19] MEDS: Budesonide/Formoterol 80/4.5 MDI IH SCH ×2 (07:54→19:52)
[2016-11-19] MEDS: Insulin DETEMIR 100 UNIT/ML X5UNITS SQ SCH ×2 (08:19→22:39)
[2016-11-19] MEDS: Fluticasone Propionate Nasal 50 MCG/SPRAY BOTTLE NS SCH (08:51)
--- NOTE | 2016-11-19 09:42 | General Surgery Progress Note ---
<Christian Perea - Last Filed: 11/19/16 10:52> Date of Encounter: 11/19/16 Time of Encounter: 09:05 - Assessment and Plan (1) Partial bowel obstruction Status: Acute Patient is improving and continuing to have +flatus and + bowel sounds. Advance to full liquid diet. Can resume PO meds at this time. Continue IV fluids. (2) Diabetes Status: Acute Continue management per the medicine team with sliding scale insulin. One episode of hypoglycemia this morning. Patient was given dextrose 50% in 25ml @ 5:54 AM. 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 Management per the medicine team. (4) Acute kidney failure Status: Resolved Resolved with creatinine 0.84 today. Qualifiers: Acute renal failure type: unspecified Qualified Code(s): N17.9 - Acute kidney failure, unspecified Subjective Patient reports: no new complaints, feels better, voiding w/o difficulty, flatus , no bowel movement Narrative: no nausea or vomiting Objective Vital Signs - Last 8 Hours Temp Pulse Resp BP Pulse Ox 11/19/16 06:50 97.5 F L 101 17 116/70 94 L 11/19/16 04:45 20 92 L 11/19/16 03:03 98 F 98 20 129/60 93 L Intake and Output 11/18/16 11/19/16 11/19/16 23:59 07:59 15:59 Intake Total 1000 / 1000 Output Total 400 / 400 480 / 480 475 / 475 Balance -400 / -400 520 / 520 -475 / -475 Intake: IV Fluids 1000 / 1000 0.9 % Sodium Chloride 1, 1000 / 1000 000 ML @ 100 mls/hr IVC . Q10H [facility] Rx#:[id number] Output: Urine 400 / 400 480 / 480 475 / 475 Other: Stool Size Small Stool Consistency liquid Stool Color Brown # Bowel Movements 1 Weight 130 kg Blood Glucose* 101 69 63 Patient Weight 11/19/16 23:59 Weight 130 kg - General physical appearance well developed, well nourished, no distress - Eyes normal ocular movement - ENT normal mucosa - Neck Neck exam: trachea midline - Respiratory normal respiratory effort rales: bilateral (mild) - Cardiovascular Cardiovascular exam: Present: RRR - Abdomen Abdomen: Present: bowel sounds present, soft, non tender. Absent: guarding, rebound - Integumentary no rash - Neurologic CN 2-12 grossly intact - Musculoskeletal normal posture - Psychiatric oriented to time, oriented to person, oriented to place, speech is normal - Labs 11/19/16 04:16 11/19/16 04:16 Diabetes panel 11/19/16 Range/Units 04:16 Sodium 138 (136-145) mEq/L Potassium 3.2 L (3.5-4.5) mEq/L Chloride 109 (98-109) mEq/L Carbon Dioxide 22 (19-29) mEq/L BUN 22 D (8-26) mg/dL Creatinine 0.84 (0.72-1.25) mg/dL Glucose 39 L* (70-99) mg/dL Calcium 7.3 L (8.6-10.8) mg/dL Calcium panel 11/19/16 Range/Units 04:16 Calcium 7.3 L (8.6-10.8) mg/dL Pituitary panel 11/19/16 Range/Units 04:16 Sodium 138 (136-145) mEq/L Potassium 3.2 L (3.5-4.5) mEq/L Chloride 109 (98-109) mEq/L Carbon Dioxide 22 (19-29) mEq/L BUN 22 D (8-26) mg/dL Creatinine 0.84 (0.72-1.25) mg/dL Glucose 39 L* (70-99) mg/dL Calcium 7.3 L (8.6-10.8) mg/dL Adrenal panel 11/19/16 Range/Units 04:16 Sodium 138 (136-145) mEq/L Potassium 3.2 L (3.5-4.5) mEq/L Chloride 109 (98-109) mEq/L Carbon Dioxide 22 (19-29) mEq/L BUN 22 D (8-26) mg/dL Creatinine 0.84 (0.72-1.25) mg/dL Glucose 39 L* (70-99) mg/dL Calcium 7.3 L (8.6-10.8) mg/dL Consult Discharge Plan - Plan Instructions: Dehydration (DC), Acute Kidney Injury (DC), Hypokalemia (DC), Gastroenteritis (DC), Chronic Obstructive Pulmonary Disease (DC) [facility]: [facility] [Primary Care Provider[facility] - 11/25/16 3:00 pm Prescriptions: PredniSONE 20 mg PO DAILY #10 tablet - Attending Attestation I examined this patient and my medical decision-making was reviewed with the TERMINOLOGIST/PA/Advanced Practice Nurse/Resident Physician. I agree with the documented findings, disposition and treatment plan as described except to the extent set forth below. <Anel Lan - Last Filed: 11/21/16 16:30> Date of Encounter: 11/19/16 Time of Encounter: 17:10 - Assessment and Plan (1) Partial bowel obstruction Status: Resolved patient has passed some flatus and has good bowel sounds, start clears, will reassess tomorrow Subjective Patient reports: no new complaints, feels better, voiding w/o difficulty, flatus , no bowel movement Objective - General physical appearance well developed, well nourished, no distress, obese - Eyes PERRL - ENT normal mucosa, normocephalic - Neck Neck exam: trachea midline - Respiratory normal expansion, clear to auscultation - Cardiovascular Cardiovascular exam: Present: RRR - Abdomen Abdomen: Present: bowel sounds present, soft, non tender - Integumentary no rash - Neurologic CN 2-12 grossly intact - Musculoskeletal normal posture - Psychiatric oriented to time, speech is normal - Labs 11/19/16 04:16 11/20/16 03:52
[2016-11-19] MEDS ORDERED: Potassium Chloride Elixir 20 MEQ/15 ML UDC PO ONE (12:37)
--- NOTE | 2016-11-19 14:06 | Internal Med Progress Note ---
Date of Encounter: 11/19/16 Time of Encounter: 13:50 - Assessment and plan (1) COPD exacerbation Current Visit: Yes Status: Acute Assessment and plan: Improved, change duonebs to prn only as patient has improved respiratory status but still has tachycardia (2) Dehydration Current Visit: Yes Status: Acute Assessment and plan: Resolved advance diet HOld IVF (3) Diabetes Current Visit: Yes Status: Chronic Assessment and plan: FS acceptable low levels overnight, now improved with feeds Monitor closely, continue q^ monitoring for now Give only half of levemir tonight Qualifiers: Diabetes mellitus type: type 2 Diabetes mellitus complication status: with neurologic complications Diabetes mellitus complication detail: with unspecified neuropathy Diabetes mellitus long term care social worker insulin use: unspecified long term care social worker insulin use status Qualified Code(s): E11.40 - Type 2 diabetes mellitus with diabetic neuropathy, unspecified (4) Gastroenteritis Current Visit: Yes Status: Resolved (5) HTN (hypertension) Current Visit: Yes Status: Chronic Assessment and plan: Controlled Resume home dose of lisnopril Qualifiers: Hypertension type: essential hypertension Qualified Code(s): I10 - Essential (primary) hypertension (6) Partial bowel obstruction Current Visit: Yes Status: Acute Assessment and plan: Improved, tolerating po (7) Acute kidney failure Current Visit: Yes Status: Resolved Assessment and plan: Resolved, cr now at baseline, d/c IVF Qualifiers: Acute renal failure type: unspecified Qualified Code(s): N17.9 - Acute kidney failure, unspecified (8) Hypokalemia Current Visit: Yes Status: Acute Assessment and plan: K 3.2 Replaced orally Rpt chem a.m - Subjective Interval history: Initial encounter EMR reviewed Patient admitted and managed for acute viral gastroenteritis secondary to rotavirus, MARISA on CKD, metabolic acidosis Hospital stay complicated by SBO and ileus for which surgery was consulted Patient already on full liquid diet at time of review Seen at bedside with , states he feels better and has had a BM Denies abdominal pain or distension at this time Tachycardia persists, leukocytosis has improved, MARISA has resolved - Constitutional Vitals: Temp Pulse Resp BP Pulse Ox 97.5 F L 101 17 129/63 96 11/19/16 11:14 11/19/16 11:14 11/19/16 11:14 11/19/16 11:14 11/19/16 11:14 General appearance: Present: A&O X 3, obese, answers questions appropriately - Eye Eye exam: Present: PERRL, conjuntiva pink, sclera anicteric Pupils: Present: PERRL - Neck Neck exam general surgery: Present: supple, trachea midline. Absent: lymphadenopathy - Respiratory Respiratory exam: Present: CTAB. Absent: accessory muscle use, rales, rhonchi, wheezes - Cardiovascular Cardiovascular exam: Present: RRR, +S1, +S2. Absent: diastolic murmur, gallop, rubs, systolic murmur - GI/Abdominal GI/Abdominal exam: Present: normal bowel sounds, soft, no peritoneal signs. Absent: distended, tenderness - Extremities Exam Extremities exam: Present: warm, radial pulses palpable and symetrical. Absent : calf tenderness, cyanotic, pedal edema - Neurological Exam Neurological exam: Present: CN II-XII intact, oriented X3, no focal deficits. Absent: pronater drift, facial droop, speech deficit - Skin Skin exam: Present: dry, intact Internal Medicine: Result - Labs CBC & Chem 7: 11/19/16 04:16 11/19/16 04:16 Labs: Short CBC 11/19/16 Range/Units 04:16 WBC 9.4 (4.3-11.1) K/mcL Hgb 10.2 L D (12.9-16.9) g/dL Hct 33.7 L (37.5-50.1) % Plt Count 331 (140-400) K/mcL Neutrophils # 6.2 (1.6-8.9) K/mcL BMP 11/19/16 04:16 Sodium 138 Potassium 3.2 L Chloride 109 Carbon Dioxide 22 BUN 22 D Creatinine 0.84 Glucose 39 L* Calcium 7.3 L - Impressions Impressions KUB X-Ray 11/18/16 13:30 IMPRESSION: 1. Multiple dilated loops of small bowel either due to partial small bowel obstruction or ileus. D/ / Mart Mota MD / Mart Mota MD Interpreting Provider: Mart Mota MD Consult Discharge Plan - Plan [facility]errals: [facility] [Primary Care Provider] -
[2016-11-19] MEDS ORDERED: Ipratropium/Albuterol Neb 3 ML IH PRN (17:29)
--- NOTE | 2016-11-19 17:55 | Electrocardiograph Report ---
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
[2016-11-20 04:36] LABS: Carbon Dioxide 25 mEq/L (19-29); Chloride 106 mEq/L (98-109); Potassium 3.7 mEq/L (3.5-4.5); Sodium 138 mEq/L (136-145)
[2016-11-20 04:37] LABS: BUN/Creatinine Ratio 12 (6-26); Calcium 7.8 mg/dL (8.6-10.8); Glucose 103 mg/dL (70-99); Osmolality,Calculated 286 (280-300); eGFR For African Americans > 60 (> 60); eGFR For Non-African Americans > 60 (> 60)
[2016-11-20 04:38] LABS: Blood Urea Nitrogen 11 mg/dL (8-26)
[2016-11-20] MEDS: Acetaminophen 325 MG TABLET PO PRN (06:54)
[2016-11-20] MEDS: Insulin DETEMIR 100 UNIT/ML X5UNITS SQ SCH (09:03)
[2016-11-20] MEDS: Insulin LISPRO 300 UNITS/3 ML VIAL SQ SCH ×4 (09:03→13:21)
--- NOTE | 2016-11-20 09:13 | General Surgery Progress Note ---
<Christian Perea - Last Filed: 11/20/16 11:50> Date of Encounter: 11/20/16 Time of Encounter: 08:30 - Assessment and Plan (1) Partial bowel obstruction Status: Acute Patient is improving and continuing to have +flatus and + bowel sounds. Had a BM yesterday. The patient is tolerating a diabetic diet at this time. IV fluids have been discontinued as he is tolerating PO liquids and food well. Surgery will sign off at this time, thank you for involving us in this patient' s care, please feel free to contact us with any questions. (2) Diabetes Status: Chronic Continue management per the medicine team with sliding scale insulin. Qualifiers: Diabetes mellitus type: type 2 Diabetes mellitus complication status: with neurologic complications Diabetes mellitus complication detail: with unspecified neuropathy Diabetes mellitus prison insulin use: unspecified terminal make up operator insulin use status Qualified Code(s): E11.40 - Type 2 diabetes mellitus with diabetic neuropathy, unspecified (3) COPD exacerbation Status: Acute Continue bronchodilators and supplemental oxygen as needed. Management per the medicine team. (4) Acute kidney failure Status: Resolved Resolved with creatinine 0.89 today. Qualifiers: Acute renal failure type: unspecified Qualified Code(s): N17.9 - Acute kidney failure, unspecified Subjective Patient reports: no new complaints, feels better, tolerating a regular diet, voiding w/o difficulty, flatus, bowel movement (yesterday), afebrile Narrative: The patient states that at his baseline he normally only has a bowel movement approximately every 2-3 days. He reports that with his N/V/D prior to admission he really didn't have much left in him. He was then not having bowel movements and was not being fed, which is what he attributes to not having a bowel movement yet. He continues to pass gas and denies feelings of abdominal distention. The patient is asking about being able to go home. Objective Vital Signs - Last 8 Hours Temp Pulse Resp BP Pulse Ox 11/20/16 08:33 98.2 F 102 20 127/71 96 11/20/16 03:13 98.9 F 108 18 133/61 95 Intake and Output 11/19/16 11/20/16 11/20/16 23:59 07:59 15:59 Intake Total 1000 / 1000 250 / 250 Output Total 1050 / 1050 Balance 1000 / 1000 -800 / -800 Intake: IV Fluids 1000 / 1000 Dextrose 5% 1,000 ML @ 1000 / 1000 100 mls/hr IV CONT PRN Rx #:[id number] Oral 250 / 250 Output: Urine 1050 / 1050 Other: Weight 131 kg Blood Glucose* 163 67 Patient Weight 11/20/16 23:59 Weight 131 kg - General physical appearance well developed, well nourished, no distress - Eyes normal ocular movement - ENT normal mucosa - Neck Neck exam: trachea midline - Respiratory normal respiratory effort, clear to auscultation - Cardiovascular Cardiovascular exam: Present: RRR - Abdomen Abdomen: Present: bowel sounds present, soft, non tender - Integumentary no rash - Neurologic CN 2-12 grossly intact, normal coordination - Musculoskeletal normal posture - Psychiatric oriented to time, oriented to person, oriented to place, speech is normal, memory intact - Labs 11/19/16 04:16 11/20/16 03:52 Diabetes panel 11/20/16 Range/Units 03:52 Sodium 138 (136-145) mEq/L Potassium 3.7 (3.5-4.5) mEq/L Chloride 106 (98-109) mEq/L Carbon Dioxide 25 (19-29) mEq/L BUN 11 D (8-26) mg/dL Creatinine 0.89 (0.72-1.25) mg/dL Glucose 103 H (70-99) mg/dL Calcium 7.8 L (8.6-10.8) mg/dL Calcium panel 11/20/16 Range/Units 03:52 Calcium 7.8 L (8.6-10.8) mg/dL Pituitary panel 11/20/16 Range/Units 03:52 Sodium 138 (136-145) mEq/L Potassium 3.7 (3.5-4.5) mEq/L Chloride 106 (98-109) mEq/L Carbon Dioxide 25 (19-29) mEq/L BUN 11 D (8-26) mg/dL Creatinine 0.89 (0.72-1.25) mg/dL Glucose 103 H (70-99) mg/dL Calcium 7.8 L (8.6-10.8) mg/dL Adrenal panel 11/20/16 Range/Units 03:52 Sodium 138 (136-145) mEq/L Potassium 3.7 (3.5-4.5) mEq/L Chloride 106 (98-109) mEq/L Carbon Dioxide 25 (19-29) mEq/L BUN 11 D (8-26) mg/dL Creatinine 0.89 (0.72-1.25) mg/dL Glucose 103 H (70-99) mg/dL Calcium 7.8 L (8.6-10.8) mg/dL Consult Discharge Plan - Plan Instructions: Dehydration (DC), Acute Kidney Injury (DC), Hypokalemia (DC), Gastroenteritis (DC), Chronic Obstructive Pulmonary Disease (DC) [facility]errals: [facility] [Primary Care Provider] - 11/25/16 3:00 pm Prescriptions: PredniSONE 20 mg PO DAILY #10 tablet - Attending Attestation I examined this patient and my medical decision-making was reviewed with the FOOD CHEMIST/PA/Advanced Practice Nurse/Resident Physician. I agree with the documented findings, disposition and treatment plan as described except to the extent set forth below. <Anel Lan - Last Filed: 11/21/16 16:32> Date of Encounter: 11/20/16 - Assessment and Plan (1) Partial bowel obstruction Status: Resolved tolerating diet, passing flatus and having bm, ok to continue to adv diet and general surgery will sign off Subjective Patient reports: no new complaints, tolerating liquids well, tolerating a regular diet, voiding w/o difficulty, flatus, bowel movement Objective - General physical appearance well developed, well nourished, no distress, no pain - Eyes normal ocular movement - ENT normal mucosa - Neck Neck exam: trachea midline - Respiratory normal expansion - Cardiovascular Cardiovascular exam: Present: RRR - Abdomen Abdomen: Present: soft, non tender - Integumentary no rash - Neurologic CN 2-12 grossly intact - Musculoskeletal normal posture - Psychiatric oriented to time, speech is normal - Labs 11/19/16 04:16 11/20/16 03:52
[2016-11-20] MEDS: predniSONE 20 MG TABLET PO SCH (10:55)
[2016-11-20] MEDS: Gabapentin 400 MG CAPSULE PO SCH (10:55)
[2016-11-20] MEDS: Fluticasone Propionate Nasal 50 MCG/SPRAY BOTTLE NS SCH (10:55)
[2016-11-20] MEDS: Budesonide/Formoterol 80/4.5 MDI IH SCH (11:10)
[2016-11-20 15:18] VITALS: BP 135/76
--- NOTE | 2016-11-20 15:21 | Discharge Summary ---
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 exterminator helper insulin use status Qualified Code(s): E11.40 - Type 2 diabetes mellitus with diabetic neuropathy, unspecified (4) Gastroenteritis Priority: Primary Status: Resolved (5) HTN (hypertension) Priority: Secondary Status: Chronic Qualifiers: Hypertension type: essential hypertension Qualified Code(s): I10 - Essential (primary) hypertension (6) Partial bowel obstruction Priority: Primary Status: Resolved (7) Acute kidney failure Priority: Primary Status: Resolved Qualifiers: Acute renal failure type: unspecified Qualified Code(s): N17.9 - Acute kidney failure, unspecified (8) Hypokalemia Priority: Primary Status: Acute - Discharge Medications Home Medications: Amitriptyline [Elavil] 25 mg PO HS 11/16/16 [History] Budesonide/Formoterol 80/4.5 [Symbicort 80/4.5] 1 puff IH BID 11/16/16 [History ] Clotrimazole 1% CRM [Lotrimin 1%] 1 appl TP BID 11/16/16 [History] Gabapentin [Neurontin] 800 mg PO TID 11/16/16 [History] Guaifenesin [Mucinex] 400 mg PO BID 11/16/16 [History] Lisinopril [Zestril] 10 mg PO DAILY 11/16/16 [History] Metformin [Glucophage] 1,000 mg PO BID 11/16/16 [History] Montelukast [Singulair] 10 mg PO HS 11/16/16 [History] Pantoprazole Sodium 40 mg PO DAILY 11/16/16 [History] Saxagliptin HCl [Onglyza] 5 mg PO DAILY 11/16/16 [History] Simvastatin [Zocor] 40 mg PO DAILY 11/16/16 [History] Insulin Glargine,Hum.rec.anlog [Lantus Solostar] 40 unit SQ BID #0 11/20/16 [Rx ] Allergies/Adverse Reactions: Allergies clarithromycin Allergy (Verified 10/24/15 15:08) Swelling of Lip/Tongue/Throat Procedures/tests Complete & Pending: Procedures Performed prior 72 hours Category Date Time Status EKG [ECG 12 lead ECG] [ECG] Stat Y 11/18/16 13:23 Completed EKG [ECG 12 lead ECG] [ECG] Stat Y 11/19/16 20:01 Completed Date of admission: 11/16/16 02:51 Primary care physician: PCP DEBBY Consults: 11/18/16 16:28 Consult to Surgery [CONS] Routine Consulting Provider: Marilia Garcia Surgical Reason for Consult: SBO Call Completed: Yes Discharging clinician: Raffy Cardona Anticipated date of discharge: 11/20/16 - Patient Status Disposition: Home, Self-Care Condition: Good - Discharge Instructions Follow Up With: DEBBY,PCP [Primary Care Provider] - 11/25/16 3:00 pm - Diet and Activity Activity: resume usual activities as tolerated Diet: diabetic diet, low fat, low cholesterol, low salt diet Interval History: See below Hospital course: Mr. Peters is a 70 year old male Patient admitted and managed for acute viral gastroenteritis secondary to rotavirus, MARISA on CKD, metabolic acidosis Hospital stay complicated by SBO and ileus for which surgery was consulted Patient also had hypokalemia and episodes of tachycardia, resolved with replacements There was no surgical intervention and improved with conservative treatment with NPO, IVF hydration and bowel rest He has started having bowel movements, passing flatus Patient is seen this morning, requesting to be discharged He has been seen and cleared by general surgery MARISA has resolved and sustained even after restarting ACEI All other electrolyte has improved hypomagnessemia and hypokalemia is improved He is no longer wheezing, he will be discharged on prednisone po Tachycardia remains sinus, mild and sustained. Patient has no chest pain, palpitations or SOB He also had one episode of hypoglycemia after which insulin was decreased Patient did not qualify for home O2 He states his immunization is UTD for age He will follow up with PCP D/Eleazar on prednisone taper Educated to resume glargine at home at half of previous dose, and monitor FS till follow up with PCP, due to hypoglycemic episode he had inpatient Plan of care discussed with patient and at bedside, verbalized understanding - Time Spent with Patient Total time spent providing and/or coordinating discharge services: Less than 30 minutes - Constitutional Vitals: Temp Pulse Resp BP Pulse Ox 98.2 F 106 18 135/76 95 11/20/16 15:16 11/20/16 15:16 11/20/16 15:16 11/20/16 15:16 11/20/16 15:16 General appearance: Present: A&O X 3, obese, answers questions appropriately - Head Head exam: Present: atraumatic, normocephalic - Eye Eye exam: Present: PERRL, conjuntiva pink, sclera anicteric Pupils: Present: PERRL - Neck Neck exam general surgery: Present: supple, trachea midline. Absent: lymphadenopathy - Respiratory Respiratory exam: Present: CTAB. Absent: accessory muscle use, rales, rhonchi, wheezes - Cardiovascular Cardiovascular exam: Present: RRR, +S1, +S2. Absent: diastolic murmur, gallop, rubs, systolic murmur - GI/Abdominal GI/Abdominal exam: Present: normal bowel sounds, soft, no peritoneal signs. Absent: distended, tenderness - Extremities Exam Extremities exam: Present: warm, radial pulses palpable and symetrical. Absent : calf tenderness, cyanotic, pedal edema - Neurological Exam Neurological exam: Present: CN II-XII intact, oriented X3, no focal deficits. Absent: pronater drift, facial droop, speech deficit - Skin Skin exam: Present: dry, intact
--- NOTE | 2016-11-21 17:44 | Electrocardiograph Report ---
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
== END 2016-11-20 16:35 | disposition home or self-care (01) | DRG 392 ==
LOC: 3BNU 20:24 → EMEROO 20:24 → 3BNU 11-16 00:19 → SUATTDRO 11-16 02:51
PROVIDERS: ADMIT Internal Medicine; ATTEND Internal Medicine

== ENCOUNTER 2021-10-13 16:08 | Observation (INO) ==
[2021-10-13] MEDS ORDERED: Naloxone 0.4 MG/ML INJ IVP PRN (19:31)
[2021-10-13] MEDS ORDERED: Ondansetron 4 MG/2 ML VIAL IVP PRN (19:31)
[2021-10-13] MEDS ORDERED: D5% in Water 1,000 ML IVC PRN (20:34)
[2021-10-13] MEDS ORDERED: *HR* Dextrose 50 % in Water (Syg) 50 ML SYRINGE IVP PRN (20:34)
[2021-10-13] MEDS ORDERED: Dextrose Gel 15 GM/37.5 ML TUBE PO PRN ×2 (20:34)
[2021-10-13] MEDS ORDERED: Ipratropium/Albuterol Neb 3 ML IH PRN (20:35)
[2021-10-13] MEDS ORDERED: *HR* HYDROcodone/Acet 5/325 mg TABLET PO PRN (21:33)
[2021-10-14] MEDS: Piperacillin/Tazobactam 3.375 GM in 0.9 % Sodium Chloride Mini Bag 100 ML IVPB SCH ×2 (00:11→08:03)
[2021-10-14 03:19] LABS: Bilirubin,Urine Negative (Negative); Blood,Urine Negative (Negative); Clarity,Urine Clear (Clear); Color,Urine Yellow (Yellow); Glucose,Urine (UA) Normal (Normal); Ketones,Urine Negative (Negative); Leukocyte Esterase,Urine Negative (Negative); Mucus,Urine Few per lpf (None-Few); Nitrite,Urine Negative (Negative); Protein,Urine 30 mg/dL (Neg-Trace); RBC,Urine 0-3 per hpf (0-3); Specific Gravity,Urine 1.023 (1.010-1.025); Squamous Epithelial Cell,Urine Few per hpf (None-Few); Urobilinogen,Urine Normal (Normal); WBC,Urine 0-3 per hpf (0-3)
[2021-10-14 06:42] VITALS: BP 128/71; PULSE 92; TEMP 97.9
[2021-10-14 07:18] LABS: Basophils % 0.4 %; Eosinophils # 0.1 K/mcL (0.0-0.6); Eosinophils % 1.1 %; Hematocrit 39.1 % (37.5-50.1); Immature Granulocytes % 0.5 % (0-4); Lymphocytes # 1.3 K/mcL (0.6-4.6); Lymphocytes % 17.2 %; Mean Corpuscular HGB Conc 33.2 g/dL (31.6-35.5); Mean Corpuscular Hemoglobin 29.1 pg (28.0-33.3); Mean Corpuscular Volume 87.7 fL (83.0-100.0); Mean Platelet Volume 9.7 fL (9.4-12.4); Monocytes # 0.8 K/mcL (0.0-1.3); Monocytes % 11.2 %; Neutrophils # 5.2 K/mcL (1.6-8.9); Platelet Count 315 K/mcL (140-400); Red Blood Count 4.46 M/mcL (4.19-5.50); Red Cell Distribution Width 13.2 % (11.5-14.5); Segmented Neutrophils % 69.6 %; White Blood Count 7.5 K/mcL (4.3-11.1)
[2021-10-14] MEDS ORDERED: Insulin LISPRO 300 UNITS/3 ML VIAL SUBQ SCH (07:30)
[2021-10-14 07:31] LABS: INR 1.1; Prothrombin Time 12.1 Seconds (9.4-12.1)
[2021-10-14] MEDS ORDERED: Budesonide/Formoterol 160/4.5 1 PUFF INH IH ONE (07:41)
[2021-10-14 07:42] LABS: Alanine Aminotransferase 8 Units/L (7-52); Albumin 3.4 g/dL (3.5-5.7); Albumin/Globulin Ratio 1.2 (1.1-2.2); Alkaline Phosphatase 27 Units/L (34-104); Aspartate Amino Transferase 9 Units/L (13-39); BUN/Creatinine Ratio 21 (6-26); Bilirubin,Direct 0.1 mg/dL (0.0-0.2); Bilirubin,Indirect 0.4 mg/dL (0.0-1.0); Bilirubin,Total 0.5 mg/dL (0.3-1.0); Blood Urea Nitrogen 20 mg/dL (8-23); Calcium 8.6 mg/dL (8.6-10.3); Carbon Dioxide 27 mEq/L (23-29); Chloride 105 mEq/L (98-107); Globulin 2.8 g/dL (2.4-3.5); Glucose 65 mg/dL (70-105); Magnesium 1.3 mg/dL (1.6-2.6); Osmolality,Calculated 293 (280-300); Potassium 3.3 mEq/L (3.5-5.1); Sodium 141 mEq/L (136-145); Total Protein 6.2 g/dL (6.4-8.9); eGFR For African Americans > 60 (> 60); eGFR For Non-African Americans > 60 (> 60)
[2021-10-14] MEDS ORDERED: [UNRECOGNIZED DRUG - OTHER] PO SCH (09:00)
[2021-10-14] MEDS ORDERED: Gabapentin 400 MG CAPSULE PO SCH (09:00)
[2021-10-14] MEDS ORDERED: Cholecalciferol (D-3) 1,000 UNIT (25MCG) TABLET PO SCH (09:00)
[2021-10-14] MEDS ORDERED: HYDROCODONE PO SCH (09:00)
[2021-10-14] MEDS ORDERED: *HR* Enoxaparin 40 MG/0.4 ML SYRINGE SQ SCH (09:00)
[2021-10-14] MEDS ORDERED: Folic Acid 1 MG TABLET PO SCH (09:00)
[2021-10-14] MEDS ORDERED: ACETAMINOPHEN PO SCH (09:00)
[2021-10-14] MEDS ORDERED: Fluticasone Propionate Nasal 50 MCG/SPRAY BOTTLE NS SCH (09:00)
[2021-10-14] MEDS ORDERED: Aspirin Enteric Coated 81 MG Tablet PO SCH (09:00)
[2021-10-14 09:12] VITALS: O2SAT 96
[2021-10-14 09:36] LABS: Adenovirus Not Detected (Not Detect); Bordetella Pertussis Not Detected (Not Detect); Chlamydophila pneumoniae Not Detected (Not Detect); Coronavirus 229E Not Detected (Not Detect); Coronavirus HKU1 Not Detected (Not Detect); Coronavirus NL63 Not Detected (Not Detect); Coronavirus OC43 Not Detected (Not Detect); Human Metapneumovirus Not Detected (Not Detect); Human Rhinovirus/Enterovirus Not Detected (Not Detect); Influenza A Subtype 2009 H1 Not Detected (Not Detect); Influenza B Not Detected (Not Detect); Mycoplasma pneumoniae Not Detected (Not Detect); Parainfluenza Virus 1 Not Detected (Not Detect); Parainfluenza Virus 2 Not Detected (Not Detect); Parainfluenza Virus 3 Not Detected (Not Detect); Parainfluenza Virus 4 Not Detected (Not Detect); Respiratory Syncytial Virus Not Detected (Not Detect)
[2021-10-14 09:49] LABS: SARS-CoV-2 DETECTED (Not Detect)
[2021-10-14] MEDS ORDERED: Budesonide/Formoterol 80/4.5 1 PUFF INH IH SCH (10:00)
[2021-10-14 11:22] LABS: Estimated Average Glucose 174 mg/dl; Hemoglobin A1C 7.7 %
== END 2021-10-14 12:32 | disposition home or self-care (01) ==
LOC: 3ANU → SUATTDRO 19:40
PROVIDERS: ADMIT Student in an Organized Health Care Education/Training Program; ATTEND Internal Medicine